=== PATIENT | female | born 1985 | race Hispanic/Latino ===

== ENCOUNTER 2016-12-14 22:28 | Emergency (ER) | payer BC ==
[2016-12-14 22:43] VITALS: RESP 16; O2SAT 100
--- NOTE | 2016-12-14 23:53 | ED PDOC ---
Lower Extremity Pain/Injury Time Seen by Provider: 12/14/16 22:51 Chief Complaint (Nursing): Lower Extremity Problem/Injury Chief Complaint (Provider): left knee History Per: Patient History/Exam Limitations: no limitations Additional Complaint(s): 31yo f with hx of left knee surgery in ED c/o of left knee injury sustained while playing soccer-<1hr [employer]. states she felt a pop to her knee while twisting. a noncontact injury. immediately has swelling, unable to bear wght with increasing pain. no dec sensation to LE no weakness Past Medical History Reviewed: Historical Data, Nursing Documentation, Vital Signs Vital Signs: Last Vital Signs Temp 98 F 12/14/16 22:40 Pulse 85 12/14/16 22:40 Resp 16 12/14/16 22:40 BP 141/75 12/14/16 22:40 Pulse Ox 100 12/14/16 22:40 - Medical History PMH: No Chronic Diseases - Family History Family History: States: No Known Family Hx - Allergies Allergies/Adverse Reactions: Allergies Allergy/AdvReac Type Severity Reaction Status Date / Time acetaminophen [From Percocet] Allergy DIZZINESS Verified 12/14/16 22:39 naproxen Allergy DIZZINESS Verified 12/14/16 22:40 oxycodone [From Percocet] Allergy DIZZINESS Verified 12/14/16 22:39 Review of Systems ROS Statement: Except As Marked, All Systems Reviewed And Found Negative Musculoskeletal: Positive for: Other (knee pain) Physical Exam - Reviewed Nursing Documentation Reviewed: Yes Vital Signs Reviewed: Yes - Physical Exam Appears: Positive for: Non-toxic, Uncomfortable Skin: Positive for: Normal Color, Warm, DRY Cardiovascular/Chest: Positive for: Regular Rate, Rhythm Respiratory: Positive for: CNT, Normal Breath Sounds Extremity: Positive for: Other (left knee: unable to range due to pain, swelling noted to medial aspect of knee. pain to popilteal area. normal pulses noted. no discoloration noted. skin intact. FROM of ankle and hip. ) Neurologic/Psych: Positive for: Alert, Oriented - ECG O2 Sat by Pulse Oximetry: 100 - Progress ED Course And Treament: pt to get xray of knee and tib/fib torodol for pain(states she takes advil at home) Disposition - Clinical Impression Clinical Impression: Knee injury - Patient ED Disposition Is Patient to be Admitted: Transfer of Care - Disposition Disposition Time: 23:55 Condition: FAIR Forms: [facility] ([place]) Patient Signed Over To: Samina Mireles (knee injury)
--- NOTE | 2016-12-15 01:31 | ED PDOC ---
- ECG O2 Sat by Pulse Oximetry: 100 - Other Rad xray left knee X-Ray: Viewed By Me X-Ray Interpretation: no acute findings xray left tib/fib X-Ray: Viewed By Me X-Ray Interpretation: no acute findings - Progress ED Course And Treament: Case endorsed to literary writer from [facility] KRISHNAMURTHY pending xray's. Patient educated on findings, placed in knee immobilizer. Crutches given with demonstration on use. Rx Tramadol provided. Advised ibuprofen PRN moderate pain. RICE. Follow up ortho (patient states she has her own ortho she will see) Return to ED for worsening/concerning symptoms. Disposition - Clinical Impression Clinical Impression: Knee injury - POA Present On Arrival: None - Disposition Disposition: Routine/Home Disposition Time: 01:31 Condition: IMPROVED Additional Instructions: Follow up with Orthopedist. Rest, ice, compress, elevate. Take Ibuprofen (3 tablets every 6 hours as needed for moderate pain) Take Tramadol as directed, as needed for severe pain. Return to ED for worsening/concerning symptoms. Prescriptions: traMADol [Ultram] 50 mg PO Q8 PRN #10 tab PRN Reason: Pain, Severe (8-10) Instructions: Knee Sprain (ED) Forms: [employer] (Bulgarian)
[2016-12-15 01:58] VITALS: BP 116/74; PULSE 77; TEMP 98.2
--- NOTE | 2016-12-15 13:16 | RAD ---
HISTORY: injury COMPARISON: No prior FINDINGS: BONES: Normal. No fracture. JOINTS: Normal. No osteoarthritis. SOFT TISSUE: Normal. OTHER FINDINGS: None . IMPRESSION: Normal Bone Xray.
--- NOTE | 2016-12-15 14:04 | RAD ---
PROCEDURE: Left Knee Radiographs. HISTORY: Pain. COMPARISON: None. FINDINGS: BONES: Postoperative findings related prior ACL repair. No acute osseous abnormalities. JOINTS: Normal. No osteoarthritis. JOINT EFFUSION: None. OTHER FINDINGS: None. IMPRESSION: No acute findings related to/accounting for the clinical presentation.
== END 2016-12-15 01:40 | disposition home or self-care (01) ==
LOC: H.ER 22:28
DX: S89.92XA Unspecified injury of left lower leg, initial encounter (principal); X50.1XXA Overexertion from prolonged static or awkward postures, initial encounter; Y93.66 Activity, soccer; Y92.9 Unspecified place or not applicable
CPT/HCPCS: 29530; 73560; 73590; 84703; 96374; 99285; J1885; L1830